=== PATIENT | female | born 1980 | race Two or more races ===

== ENCOUNTER 2017-08-28 16:19 | Outpatient (CLI) | payer OTHER | END 2017-08-28 16:29 | disposition home or self-care (01) | LOC: RAD 16:19 | DX: Z00.00 Encounter for general adult medical examination without abnormal findings (principal) ==

== ENCOUNTER 2020-04-04 16:05 | Outpatient (CLI) | payer OTHER | END 2020-04-04 16:13 | disposition home or self-care (01) | LOC: RAD 16:05 | PROVIDERS: ATTEND Ophthalmology | DX: R05 Cough (principal) ==

== ENCOUNTER 2021-01-01 06:19 | Outpatient (CLI) | payer OTHER | END 2021-01-01 06:22 | disposition home or self-care (01) | LOC: LAB 06:19 | PROVIDERS: ATTEND Ophthalmology | DX: Z20.828 Contact with and (suspected) exposure to other viral communicable diseases (principal) ==

== ENCOUNTER 2021-01-30 14:57 | Outpatient (CLI) | payer OTHER | END 2021-01-30 15:21 | disposition home or self-care (01) | LOC: MRI 14:57 | PROVIDERS: ATTEND Ophthalmology | DX: M25.511 Pain in right shoulder (principal) | CPT/HCPCS: 73218 ==

== ENCOUNTER 2024-01-27 14:40 | Outpatient (CLI) | payer OTHER | END 2024-01-27 14:48 | disposition home or self-care (01) | LOC: RAD 14:40 | DX: S66.921A Laceration of unspecified muscle, fascia and tendon at wrist and hand level, right hand, initial encounter (principal) ==

== ENCOUNTER 2024-08-31 08:58 | Outpatient (CLI) | payer OTHER | END 2024-08-31 09:01 | disposition home or self-care (01) | LOC: RAD 08:58 | PROVIDERS: ATTEND Orthopaedic Surgery | DX: S93.411A Sprain of calcaneofibular ligament of right ankle, initial encounter (principal) ==